=== PATIENT | male | born 1980 | race Two or more races ===

== ENCOUNTER 2020-04-29 08:03 | Emergency (ER) | payer SELFPAY ==
[~2020-04-29] VITALS: Ht 185.4 cm; Wt 160.8 kg
--- NOTE | 2020-04-29 08:06 | NUR ---
reimbursement representative: attempted to call pt for triage, no answer in lobby
[2020-04-29 08:25] VITALS: BP 115/57
--- NOTE | 2020-04-29 08:30 | NUR ---
PT STATED THAT HE WAS EXPOSED TO COVID-19 LAST WEEK WHILE WORKING AT [employer]. PT RECEIVED RAPID TEST AT WORK WHICH WAS NEGATIVE. PT HAS BEEN EXPERIENCING SOME NAUSEA AND MILD FEVER OVER THE PAST 3 DAYS. PT HAS VOMITTED ONCE. PT STATED THAT HE TRIED TO GO TO WORK THIS MORNING, BUT HIS EMPLOYER WOULD NOT LET HIM WORK UNTIL HE WAS SEEN IN THE ER AND CLEARED.
--- NOTE | 2020-04-29 09:19 | NUR ---
DISCHARGE INSTRUCTIONS REVIEWED WITH PT.
== END 2020-04-29 09:22 | disposition home or self-care (01) ==
LOC: ED 08:48
DX: R11.2 Nausea with vomiting, unspecified (principal)
CPT/HCPCS: 99281

== ENCOUNTER 2020-10-16 12:40 | Emergency (ER) | payer SELFPAY ==
[~2020-10-16] VITALS: Ht 190.5 cm; Wt 162.0 kg
[2020-10-16 12:50] VITALS: BP 152/89
--- NOTE | 2020-10-16 13:30 | NUR ---
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 Patient ambulatory with steady gait.
== END 2020-10-16 13:32 | disposition home or self-care (01) ==
LOC: ED 13:00
DX: Z00.00 Encounter for general adult medical examination without abnormal findings (principal); Z20.822 Contact with and (suspected) exposure to COVID-19
CPT/HCPCS: 99283; U0003; U0005